=== PATIENT | female | born 1970 | race Caucasian/White ===

== ENCOUNTER 2022-10-07 16:18 | Outpatient (AMB) | payer OTHER, SELFPAY ==
--- NOTE | 2022-10-07 16:26 | MHC.OFFWIV ---
Intake Vital Signs 10/07/22 16:28 Height 5 ft 1 in Weight 89 lb BMI 16.8 BP 102/62 Blood Pressure Location Lt brachial Position Sitting Pulse 108 H Pulse Source Pulse Oximeter Pulse Oximetry (%) 100 Oxygen Delivery Method Room Air Intake Visit Reasons: JOB SERVICE SPECIALIST, blisters on hands Intake Note: pt is here for c/o blisters on hands Patient Tobacco Use Status: Never used Tobacco Allergies Sulfa (Sulfonamide Antibiotics) [SULFA(SULFONAMIDE ANTIBIOTICS)] Allergy (Mild, Unverified 10/08/22 06:43) STOMACH UPSET Medication List - Last Reconciled 10/08/22 by Dylon Del Cid MD [id number] 160-9-4.8 mcg/actuation (Breztri Aerosphere) 2 inhalations inhalation BID eszopiclone 3 mg PO BEDTIME gabapentin 600 mg PO BEDTIME lorazepam 0.5 mg PO BID PRN mirtazapine 60 mg PO BEDTIME quetiapine 400 mg PO BEDTIME HPI JOB SERVICE SPECIALIST, blisters on hands HPI Details 52-year-old female presents to the office for a sick visit. Patient has history of obsessive-compulsive disorder. In this process, she unfortunately picks on her skin on any open wound. She started doing the same a few days ago and she has multiple small wounds. She would like to know if these are infected. [facility] Social History Patient Tobacco Use Status: Never used Tobacco Physical Exam Vital Signs: Last Vital Signs Pulse 108 H 10/07/22 16:28 BP 102/62 10/07/22 16:28 Pulse Ox 100 10/07/22 16:28 Oxygen Delivery Method Room Air 10/07/22 16:28 BMI result Body Mass Index 16.8 Skin Other: Multiple small wounds on her right arm left foot and left wrist. These are very superficial. Multiple scarring lesions from previous wounds which are completely healed. Assessment & Plan Assessment & Plan (1) Open wound of forearm: Code(s): S51.809A - Unspecified open wound of unspecified forearm, initial encounter Plan: These are not infected. Patient was reassured. However patient needs help with the underlying obsessive-compulsive disorder. She reported to me that she has a psychiatrist with home she is working. Coding Level of Care Code Est Pt Level 3 (70968) Diagnoses Open wound of forearm S51.809A
[2022-10-07 16:28] VITALS: BP 102/62; PULSE 108; O2SAT 100; BMI 16.8
== END 2022-10-07 16:57 | disposition home or self-care (01) ==
LOC: HO.HMGWI 16:18
PROVIDERS: PCP Internal Medicine
DX: S51.809A Unspecified open wound of unspecified forearm, initial encounter (principal)
CPT/HCPCS: 99213

== ENCOUNTER 2023-02-03 14:16 | Outpatient (AMB) | payer MEDICARE, MEDICAID, SELFPAY ==
[2023-02-03 15:18] VITALS: BP 152/80; PULSE 93; TEMP 36.8; O2SAT 100; BMI 17.2
--- NOTE | 2023-02-03 15:18 | AM.OFFWIN_ITS ---
Intake Vital Signs 02/03/23 15:18 Height 5 ft 1 in Weight 91 lb BMI 17.2 BP 152/80 H Blood Pressure Location Rt brachial Position Sitting Pulse 93 Pulse Source Pulse Oximeter Temp 98.2 F Temp Source Oral Pulse Oximetry (%) 100 Oxygen Delivery Method Room Air Intake Visit Reasons: EP body rash Intake Note: Pt is here today c/o upper body rash x1week Patient Tobacco Use Status: Never used Tobacco Allergies Sulfa (Sulfonamide Antibiotics) [SULFA(SULFONAMIDE ANTIBIOTICS)] Allergy (Mild, Unverified 02/03/23 15:34) STOMACH UPSET amoxicillin Adverse Reaction (Verified 02/03/23 15:34) upset stomach Penicillins Adverse Reaction (Verified 02/03/23 15:34) upset stomach Medication List - Last Reconciled 02/03/23 by Dylon Del Cid MD [id number] 160-9-4.8 mcg/actuation (Breztri Aerosphere) 2 inhalations inhalation BID eszopiclone 3 mg PO BEDTIME gabapentin 600 mg PO BEDTIME lorazepam 0.5 mg PO BID PRN mirtazapine 60 mg PO BEDTIME quetiapine 400 mg PO BEDTIME HPI EP body rash HPI Details 52-year-old female with obsessive-compul sive disorder presents to the office for a sick visit. Patient is complaining of a rash all over her body. Symptoms started a while ago. She has a dermatology appointment but can not wait. She complains of a lot of discomfort and itching. PFSH Social History Patient Tobacco Use Status: Never used Tobacco Physical Exam Vital Signs: Last Vital Signs Temp 98.2 F 02/03/23 15:18 Pulse 93 02/03/23 15:18 BP 152/80 H 02/03/23 15:18 Pulse Ox 100 02/03/23 15:18 Oxygen Delivery Method Room Air 02/03/23 15:18 BMI result Body Mass Index 17.2 Skin Other: Scattered erythematous rash over her forearms and torso. No vesicles or pustules seen. Assessment & Plan Assessment & Plan (1) Rash: Code(s): R21 - Rash and other nonspecific skin eruption Plan: Symptoms most likely allergic dermatitis. Tapering dose of prednisone given. Coding Level of Care Code Est Pt Level 3 (53668) Diagnoses Rash R21
== END 2023-02-03 15:45 | disposition home or self-care (01) ==
PROVIDERS: PCP Internal Medicine; Visit Provider Internal Medicine
DX: R21 Rash and other nonspecific skin eruption (principal)
CPT/HCPCS: 99213

== ENCOUNTER 2023-08-24 00:43 | Emergency (ER) | payer OTHER, SELFPAY ==
[2023-08-24 00:49] VITALS: BP 140/75; BP 160/80; PULSE 109; PULSE 128; RESP 18; TEMP 37.2; O2SAT 97; O2SAT 99; BMI 19.3
--- NOTE | 2023-08-24 01:04 | ED_ITS ---
HPI - General Adult General Chief complaint: Anxiety Stated complaint: TACHY SUBSTANCE ABUSE Time Seen by Provider: 08/24/23 00:53 Source: patient Mode of arrival: ambulatory Limitations: no limitations History of Present Illness ED Provider: Dr. Don Clemons HPI narrative: 53-year-old female with a history of COPD, depression, anxiety, bipolar disorder, who presents emergency department for evaluation of palpitations. Patient states that she ran into a friend earlier in the day who sold her 3 Dilaudid tablets for 10 dollars per pill. She states she took 1 pill at 06:00 hours then at 17:30 hours with no adverse effect. She took the 3rd pill with have overdose of Seroquel , 200 mg at 23:15 hours and then developed palpitations. She describes the palpitations as rapid, thumping heart rate. She felt lightheaded and dizzy. She denied chest pain, shortness of breath, nausea or vomiting. Patient states the palpitations persisted so she came to the emergency department for evaluation. Related Data Home Medications ?Medication ?Instructions ?Recorded ?Confirmed budesonide 160 mcg-glycopyr 9 2 inh inhalation BID 10/07/22 mcg-formot 4.8 mcg/actuation HFA inhaler (Breztri Aerosphere) eszopiclone 3 mg tablet 3 mg PO BEDTIME 10/07/22 gabapentin 600 mg tablet 600 mg PO BEDTIME 10/07/22 lorazepam 0.5 mg tablet 0.5 mg PO BID PRN 10/07/22 mirtazapine 30 mg tablet 60 mg PO BEDTIME 10/07/22 quetiapine 400 mg tablet 400 mg PO BEDTIME 10/07/22 Previous Rx's ?Medication ?Instructions ?Recorded prednisone 10 mg tablet 10 mg PO DAILY #28 tabs 02/03/23 hydrocortisone 2.5 % topical 1 appl topical BID #20 grams 02/04/23 ointment Allergies Allergy/AdvReac Type Severity Reaction Status Date / Time Sulfa (Sulfonamide Allergy Mild STOMACH Verified 08/24/23 00:55 Antibiotics) UPSET [SULFA(SULFONAMIDE ANTIBIOTICS)] amoxicillin AdvReac upset Verified 08/24/23 00:55 stomach Penicillins AdvReac upset Verified 08/24/23 00:55 stomach Review of Systems 2 Review of Systems: Yes all other systems are reviewed and are negative [facility] Past Medical History [facility] Narrative: Social history: She does smoke cigarettes. She denies alcohol use. She states that she occasionally uses prescription opiates. Social History Social History Patient Tobacco Use Status: Never used Tobacco Advance Directives: No Advance Directives Information Provided: No Do you have a plan to hurt others: No Plan Physical Exam ED Vital Signs: Vital Signs - 24 hr 08/24/23 00:49 Temperature 98.9 F Pulse Rate 109 H Respiratory Rate 18 Blood Pressure 140/75 H Pulse Oximetry 97 Oxygen Delivery Method Room Air BMI result Body Mass Index 19.3 Vital signs revealed an elevated heart rate of 109 Exam: General: Awake, alert in no distress, very thin, weight was 46.3 kg with a BMI 19.3 kg per m2 Head: Normocephalic, atraumatic EENT: PERRL, Lids normal, sclera normal, conjunctiva normal, nose normal , ears normal, throat without erythema or exudates Neck: Supple, no adenopathy Lung: breath sounds symmetric, no wheezing, rales or rhonchi Chest: symmetric movement, nontender Heart: Tachycardia with a regular rhythm, normal S1-S2 no murmurs rubs or gallops Abdomen: soft, non-tender, nondistended, normal bowel sounds Back: no vertebral tenderness, no CVAT Extremities: no deformities, moves all extremities symmetrically Neuro: Awake, alert, oriented, normal speech, cranial nerves intact, moves all extremities symmetrically Psych: Pleasant, cooperative Medications Administered Discontinued Medications Generic Name Dose Route Start Last Admin Trade Name Freq PRN Reason Stop Dose Admin Lorazepam 1 mg 08/24/23 01:15 08/24/23 01:37 Lorazepam 1 Mg Tablet PO 08/24/23 01:16 1 mg ONCE ONE Administration Medical Decision Making Medical Decision Making [facility] Narrative: 53-year-old female who presents emergency department for evaluation of palpable should after taking a Dilaudid that she bought on the street from a friend with 200 mg of Seroquel. Symptoms began around 23:13 hours. She describes the palpitations as a thumping rapid heart beat. She had associated lightheadedness but no other concerning symptoms. Vital signs revealed an elevated heart rate otherwise was unremarkable. Physical examination was consistent with tachycardia otherwise was unremarkable. Differential diagnosis: ?Includes but is not limited to myocardial infarction, myocardial ischemia, arrhythmia, exposure to illicit substances (cocaine, PCP, fentanyl or opiates), electrolyte abnormalities, anemia Following evaluation was ordered: CBC, CMP, troponin, drug screen urine, 12 EKG Patient was initially treated with the following: Ativan 1 mg orally Course: 01:53 My interpretation patient's laboratory evaluation as follows: CBC revealed normocytic anemia with an H&H of 11.6 and 34.8. Low potassium 3.0. Elevated glucose 177. Urine tox screen positive for marijuana only. Patient's troponin was below detectable limits which is reassuring Patient was given potassium chloride 40 mEq orally. She states that she does have a history of low potassium and has potassium supplements at home that she has not taking. Patient was given printed and verbal instructions and discharged home. She was given a intranasal Narcan rescue verbal pack at the time of discharge. Admission/Observation Consideration of admission/observation: Escalation of care including admission/observation considered Lab Data MDM Lab Attestation statement: I reviewed the patient's lab results. 08/24/23 01:27 08/24/23 01:27 Labs: Lab Results 08/24/23 Range/Units 01:27 WBC 5.8 (4.8-10.8) X10*3/uL RBC 3.96 L (4.20-5.50) X10*6/uL Hgb 11.6 L (12.0-16.0) g/dl Hct 34.8 L (37.0-47.0) % MCV 87.9 (80.0-98.0) fL MCH 29.3 (27.0-33.0) pg MCHC 33.3 (31.0-35.0) g/dl RDW 14.0 (11.0-16.0) % Plt Count 375 (160-400) X10*3/uL MPV 8.9 L (9.4-12.3) fL Immature Gran % (Auto) 0.2 (0.0-0.4) % Neut % (Auto) 36.8 L (45-73) % Lymph % (Auto) 47.8 H (20-40) % Holmes % (Auto) 8.6 (2-11) % Eos % (Auto) 4.5 H (0-4) % Baso % (Auto) 2.1 H (0-2) % Lymph # (Auto) 2.8 (1.2-4.9) X10*3/uL Holmes # (Auto) 0.5 (0.1-1.2) X10*3/uL Eos # (Auto) 0.3 (0.0-0.4) X10*3/uL Baso # (Auto) 0.1 (0.0-0.2) X10*3/uL Abs Immat Gran (auto) 0.01 (0.00-0.03) X10*3/uL Absolute Neuts (auto) 2.1 (2.0-8.3) x10*3/uL Absolute Nucleated RBC 0.000 (0.0-0.012) X10*3/uL Nucleated RBC % (auto) 0.0 (0.0-0.2) /100WBC Smear Tech's Comments VERIFIED Sodium 141 (135-145) mmol/L Potassium 3.0 L (3.3-5.1) mmol/L Chloride 106 (96-108) mmol/L Carbon Dioxide 27 (22-29) mmol/L Anion Gap 11 L (12-20) BUN 4 L (9-16) mg/dL Creatinine 0.82 (0.5-1.4) mg/dL Estim Creat Clear Calc 59.2 Estimated GFR > 60 Random Glucose 177 H (60-115) mg/dL Calcium 9.1 (8.4-10.2) mg/dL Total Bilirubin 0.2 (0.0-1.0) mg/dL AST 13 (5-31) U/L ALT 8 (0-31) U/L Alkaline Phosphatase 79 (39-117) U/L Total Protein 7.0 (6.5-8.0) g/dL Albumin 3.7 (3.5-5.0) g/dL Urine Opiates Screen Not Detected (Not Detect) Ur Buprenorphine Scrn Not Detected (Not Detect) ng/mL Ur Oxycodone Screen Not Detected (Not Detect) ng/mL Urine Methadone Screen Not Detected (Not Detect) ng/mL Urine Fentanyl Screen Not Detected (Not Detect) Ur Barbiturates Screen Not Detected (Not Detect) Ur Phencyclidine Scrn Not Detected (Not Detect) Ur Amphetamines Screen Not Detected (Not Detect) U Benzodiazepines Scrn Not Detected (Not Detect) Urine Cocaine Screen Not Detected (Not Detect) U Marijuana (THC) Screen POSITIVE H (Not Detect) Independent Interpretation I performed an independent interpretation of an: EKG Interpretation: My independent interpretation patient's 12 EKG done at 01:25 hours is as follows: Normal sinus rhythm rate of 88, normal AL interval, QRS duration QTC interval, no ST segment elevation, no ST segment depression, no PACs, no PVCs. This is a normal EKG Discharge Plan Discharge Clinical Impression: Opiate use, Palpitation, Lightheadedness, Acute hypokalemia Patient Disposition: Home, Self-Care Instructions: Heart Palpitations (ED), Potassium Content of Foods List (ED) Additional Instructions: Your blood work was unremarkable except for low potassium. You should try to eat some high potassium foods over the next week to bring up your potassium level. Also take your potassium supplements as prescribed by your provider. Your EKG was unremarkable. Your drug screen was only positive for marijuana, there was no detectable opiates fentanyl in your urine this evening. I suspect that your symptoms tonight were triggered by the Dilaudid pills that you bought on the streets. It is very dangerous to take any pill that is not prescribed to you by a provider. Most pills that you by on the street her contaminated with fentanyl and this can cause you did from an overdose Continue your other medications as prescribed Follow-up with your doctor in 2 days. Please return to the emergency department if your symptoms get worse or if you develop any symptoms that are concerning to you. Your are being discharged home with intranasal Narcan. If you are going to continue to use heroin, you should make sure that there is a sober person with you that is not using drugs and that this person can administer intranasal Narcan in the event that you stop breathing. Prescriptions: No Action prednisone 10 mg tablet 10 mg PO DAILY Qty: 28 0RF Rx Instructions: 6 pills by mouth day 1, 6 pills by mouth day 2, 5 pills by mouth day 3, 4 pills by mouth day 4, 3 pills by mouth day 5, 2 pills by mouth day 6, 1 pill by mouth day 7 and 1 pill by mouth day 8. hydrocortisone 2.5 % ointment 1 appl topical BID Qty: 20 0RF lorazepam 0.5 mg tablet 0.5 mg PO BID PRN eszopiclone 3 mg tablet 3 mg PO BEDTIME mirtazapine 30 mg tablet 60 mg PO BEDTIME Breztri Aerosphere 160-9-4.8 mcg/actuation HFA aerosol inhaler 2 inh inhalation BID gabapentin 600 mg tablet 600 mg PO BEDTIME quetiapine 400 mg tablet 400 mg PO BEDTIME Print Language: Syriac
--- NOTE | 2023-08-24 01:07 | ECG_ITS ---
Test Reason : PALPITATIONS Blood Pressure : / mmHG Vent. Rate : 088 BPM Atrial Rate : 088 BPM P-R Int : 164 ms QRS Dur : 074 ms QT Int : 370 ms P-R-T Axes : 068 067 072 degrees QTc Int : 447 ms Normal sinus rhythm Normal ECG No previous ECGs available Referred By: Don Clemons Electronically Signed By:Roderick Putnam
[2023-08-24 01:27] VITALS: PULSE 96
[2023-08-24 01:33] LABS: Basophils Absolute Auto 0.1 X10*3/uL (0.0-0.2); Basophils Percent Auto 2.1 % (0-2); Eosinophils Absolute Auto 0.3 X10*3/uL (0.0-0.4); Eosinophils Percent Auto 4.5 % (0-4); Hematocrit 34.8 % (37.0-47.0); Hemoglobin 11.6 g/dl (12.0-16.0); Imm Gran Abs Auto 0.01 X10*3/uL (0.00-0.03); Imm Gran Pct Auto 0.2 % (0.0-0.4); Lymphocytes Absolute Auto 2.8 X10*3/uL (1.2-4.9); Lymphocytes Percent Auto 47.8 % (20-40); MANUAL DIFF FLAG SCAN; Mean Corpuscular HGB Conc 33.3 g/dl (31.0-35.0); Mean Corpuscular Hemoglobin 29.3 pg (27.0-33.0); Mean Corpuscular Volume 87.9 fL (80.0-98.0); Mean Platelet Volume 8.9 fL (9.4-12.3); Monocytes Absolute Auto 0.5 X10*3/uL (0.1-1.2); Monocytes Percent Auto 8.6 % (2-11); Neutrophils Absolute Auto 2.1 x10*3/uL (2.0-8.3); Neutrophils Percent Auto 36.8 % (45-73); Platelet Count 375 X10*3/uL (160-400); Red Blood Count 3.96 X10*6/uL (4.20-5.50); SCAN SMEAR FLAG 1; White Blood Count 5.8 X10*3/uL (4.8-10.8)
[2023-08-24] MEDS: LORazepam 1 MG TABLET PO (01:37)
[2023-08-24 01:43] LABS: Amphetamine Screen Urine Not Detected (Not Detect); Barbiturates, Urine Not Detected (Not Detect); Benzodiazepines Screen Urine Not Detected (Not Detect); Buprenorphine Scr Not Detected (Not Detect); Cannabinoid Screen Urine POSITIVE (Not Detect); Cocaine Screen Urine Not Detected (Not Detect); Fentanyl, urine Not Detected (Not Detect); Methadone Screen, Urine Not Detected (Not Detect); Opiate Screen Urine Not Detected (Not Detect); Oxycodone Screen Urine Not Detected (Not Detect); Phencyclidine Screen Urine Not Detected (Not Detect)
[2023-08-24 01:47] LABS: Alanine Aminotransferase 8 U/L (0-31); Albumin Level 3.7 g/dL (3.5-5.0); Alkaline Phosphatase 79 U/L (39-117); Anion Gap 11 (12-20); Aspartate Amino Transferase 13 U/L (5-31); Bilirubin Total 0.2 mg/dL (0.0-1.0); Blood Urea Nitrogen 4 mg/dL (9-16); Calcium 9.1 mg/dL (8.4-10.2); Carbon Dioxide 27 mmol/L (22-29); Chloride 106 mmol/L (96-108); Creatinine Clr Calc Pharmacy 59.2; Estimated Glomerular Filt Rate > 60; Glucose Random 177 mg/dL (60-115); Sodium 141 mmol/L (135-145)
[2023-08-24 01:49] LABS: SLIDE REVIEW VERIFIED
[2023-08-24 01:56] LABS: Troponin-I High Sensitivity < 2.7 ng/L (<3.5-17.0)
[2023-08-24] MEDS: Naloxone HCl Nasal TAKE HOME 4 MG SPRAY 8 MG NOSTRILALT (02:13)
--- NOTE | 2023-08-24 02:15 | PC.NURSE ---
pt refused potassium mixed with water per mar as pt states she cannot tolerate the taste. pt states she has prescribed po potassium at home she takes regularly. MD lee with pt taking dose at home.
--- NOTE | 2023-08-24 02:21 | PC.NURSE ---
pt educated on d/c instructions. pt reports she does not use heroin. narcan provided per mar per MD. vss pt is axox4 ambulatory with steady gait. denies si/hi. pt calling friend for ride.
[2023-08-24 02:23] VITALS: BP 139/80; PULSE 92; RESP 16; TEMP 36.6; O2SAT 99
== END 2023-08-24 02:52 | disposition home or self-care (01) ==
PROVIDERS: Emergency Provider Emergency Medicine Emergency Medical Services; PCP Internal Medicine
DX: F11.10 Opioid abuse, uncomplicated (principal); E87.6 Hypokalemia; R00.2 Palpitations; R42 Dizziness and giddiness; Z51.81 Encounter for therapeutic drug level monitoring; Z79.899 Other long term (current) drug therapy
CPT/HCPCS: 36415; 80053; 80307; 84484; 85025; 93005; 99284; 99285

== ENCOUNTER → 2023-08-24 01:07 | Outpatient (BNV) | payer OTHER, SELFPAY | PROVIDERS: Emergency Provider Emergency Medicine Emergency Medical Services; PCP Internal Medicine; Visit Provider Internal Medicine Cardiovascular Disease | DX: R00.2 Palpitations (principal) | CPT/HCPCS: 93010 ==